=== PATIENT | male | born 1955 | race Caucasian/White ===

== ENCOUNTER 2021-09-12 18:36 | Emergency (ER) | payer MEDICARE, BC ==
[2021-09-12] MEDS ORDERED: Ciprofloxacin 500 MG Tab ONE (20:00)
--- NOTE | 2021-09-12 20:15 | EDM.PDOC ---
ED HPI GENERAL MEDICAL PROBLEM - General Chief Complaint: Genitourinary Problem Stated Complaint: DIFFICULTY URINATING Time Seen by Provider: 09/12/21 18:45 - History of Present Illness INITIAL COMMENTS - FREE TEXT/NARRATIVE: Pt is here with C/O being unable to urinate for james 24 hours. He is only voiding very small, frequent amounts. No burning or blood in the urine. No Hx of renal stones. He has pressure in the low back and Abd over the bladder area. He has not been sick recently. Flank Pain Score (Numeric/FACES): 7 - Related Data Allergies Allergy/AdvReac Type Severity Reaction Status Date / Time No Known Allergies Allergy Verified 09/12/21 18:47 Home Meds: Home Meds NK [No Known Home Meds] 09/12/21 [History] Past Medical History Genitourinary History: Reports: Prostate Disorder, Renal Calculus Oncologic (Cancer) History: Reports: Malignant Melanoma - Past Surgical History HEENT Surgical History: Reports: Detached Retina GI Surgical History: Reports: Hernia, Inguinal Male Surgical History: Reports: Kidney Stone Extraction Musculoskeletal Surgical History: Reports: Knee Replacement Social & Family History - Tobacco Use Tobacco Use Status *Q: Never Tobacco User Second Hand Smoke Exposure: No - Caffeine Use Caffeine Use: Reports: None - Recreational Drug Use Recreational Drug Use: No ED ROS GENERAL - Review of Systems Review Of Systems: Comprehensive ROS is negative, except as noted in HPI. : Reports: Urinary Retention ED EXAM, RENAL/ - Physical Exam Exam: See Below (Male) Exam: Other (He does have some distention over the bladder, and tenderness with light palpation. Bladder scan shows 663 ml of urine.) Course - Vital Signs Last Recorded V/S: Last Vital Signs Temp 98 F 09/12/21 18:40 Pulse 79 09/12/21 19:05 Resp 18 09/12/21 19:05 BP 152/87 H 09/12/21 19:05 Pulse Ox 99 09/12/21 19:05 - Orders/Labs/Meds Labs: Laboratory Tests 09/12/21 09/12/21 09/12/21 Range/Units 18:54 19:20 19:20 WBC 10.6 (4.0-11.0) K/uL RBC 5.39 (4.50-6.50) M/uL Hgb 16.6 (13.0-18.0) g/dL Hct 46.5 (40.0-54.0) % MCV 86 (76-96) fL MCH 30.8 (27.0-32.0) pg MCHC 35.7 H (31.0-35.0) g/dL RDW 13.7 (11.0-16.0) % Plt Count 136 L (150-400) K/uL MPV 10.8 H (6.0-10.0) fL Neut % (Auto) 88.0 H (45.0-70.0) % Lymph % (Auto) 6.0 L (20.0-40.0) % Owen % (Auto) 5.5 (3.0-10.0) % Eos % (Auto) 0.4 L (1.0-5.0) % Baso % (Auto) 0.1 (0.0-0.5) % Neut # (Auto) 9.36 H (2.00-7.50) K/uL Lymph # (Auto) 0.64 L (1.50-4.00) K/uL Owen # (Auto) 0.58 (0.20-0.80) K/uL Eos # (Auto) 0.04 (0.04-0.40) K/uL Baso # (Auto) 0.01 L (0.02-0.10) K/uL Sodium 144 (136-145) mmol/L Potassium 3.8 (3.5-5.1) mmol/L Chloride 106 (98-107) mmol/L Carbon Dioxide 26.2 (21.0-32.0) mmol/L Anion Gap 15.6 H (5.0-15.0) mmol/L BUN 19 (8-26) mg/dL Creatinine 1.06 (0.70-1.30) mg/dL Est Cr Clr Drug Dosing 79.16 mL/min Estimated GFR (MDRD) > 60 (>60) MLS/MIN BUN/Creatinine Ratio 17.9 (6-25) Glucose 122 H (74-100) mg/dL Calcium 8.8 (8.5-10.1) mg/dL Total Bilirubin 1.5 H (0.0-1.0) mg/dL AST 22 (15-37) U/L ALT 26 (12-78) U/L Alkaline Phosphatase 88 (46-116) U/L Total Protein 6.6 (6.4-8.2) g/dL Albumin 3.6 (3.4-5.0) g/dL Globulin 3.0 (2.2-4.2) g/dL Albumin/Globulin Ratio 1.2 (0.8-2.0) PSA Screen (0.00-4.00) ng/mL Urine Color Yellow Urine Appearance Clear (CLEAR) Urine pH 5.5 (5.0-8.0) Ur Specific [place] >= 1.030 (1.003-1.030) Urine Protein Negative (NEGATIVE) mg/dL Urine Glucose (UA) Negative (NEGATIVE) mg/dL Urine Ketones Negative (NEGATIVE) mg/dL Urine Occult Blood Small H (NEGATIVE) Urine Nitrite Negative (NEGATIVE) Urine Bilirubin Negative (NEGATIVE) Urine Urobilinogen 0.2 (0.2-1.0) E.U./dL Ur Leukocyte Esterase Negative (NEGATIVE) Urine RBC 5-10 H /HPF Urine WBC 0-5 H /HPF 09/12/21 Range/Units 19:20 WBC (4.0-11.0) K/uL RBC (4.50-6.50) M/uL Hgb (13.0-18.0) g/dL Hct (40.0-54.0) % MCV (76-96) fL MCH (27.0-32.0) pg MCHC (31.0-35.0) g/dL RDW (11.0-16.0) % Plt Count (150-400) K/uL MPV (6.0-10.0) fL Neut % (Auto) (45.0-70.0) % Lymph % (Auto) (20.0-40.0) % Owen % (Auto) (3.0-10.0) % Eos % (Auto) (1.0-5.0) % Baso % (Auto) (0.0-0.5) % Neut # (Auto) (2.00-7.50) K/uL Lymph # (Auto) (1.50-4.00) K/uL Owen # (Auto) (0.20-0.80) K/uL Eos # (Auto) (0.04-0.40) K/uL Baso # (Auto) (0.02-0.10) K/uL Sodium (136-145) mmol/L Potassium (3.5-5.1) mmol/L Chloride (98-107) mmol/L Carbon Dioxide (21.0-32.0) mmol/L Anion Gap (5.0-15.0) mmol/L BUN (8-26) mg/dL Creatinine (0.70-1.30) mg/dL Est Cr Clr Drug Dosing mL/min Estimated GFR (MDRD) (>60) MLS/MIN BUN/Creatinine Ratio (6-25) Glucose (74-100) mg/dL Calcium (8.5-10.1) mg/dL Total Bilirubin (0.0-1.0) mg/dL AST (15-37) U/L ALT (12-78) U/L Alkaline Phosphatase (46-116) U/L Total Protein (6.4-8.2) g/dL Albumin (3.4-5.0) g/dL Globulin (2.2-4.2) g/dL Albumin/Globulin Ratio (0.8-2.0) PSA Screen 15.07 H (0.00-4.00) ng/mL Urine Color Urine Appearance (CLEAR) Urine pH (5.0-8.0) Ur Specific [place] (1.003-1.030) Urine Protein (NEGATIVE) mg/dL Urine Glucose (UA) (NEGATIVE) mg/dL Urine Ketones (NEGATIVE) mg/dL Urine Occult Blood (NEGATIVE) Urine Nitrite (NEGATIVE) Urine Bilirubin (NEGATIVE) Urine Urobilinogen (0.2-1.0) E.U./dL Ur Leukocyte Esterase (NEGATIVE) Urine RBC /HPF Urine WBC /HPF - Re-Assessments/Exams Free Text/Narrative Re-Assessment/Exam: 09/12/21 20:11 Catheter was placed per nursing without difficulty with return of almost 700 ml of clear urine. His symptoms of pressure and back pain resolved as well. V.S. also improved. Labs show a left shift, and the UA shows mild changes. PSA is up at 15. Pt will be started on Cipro for 3 days. I discussed the option of leaving the catheter in versu removing it. He wants the catheter out tonite, so it was removed before leaving. He is to follow up with his PCP or Urology when he gets home. He is here for fishing, but plans to go home tomorrow. He has no further questions. Departure - Departure Time of Disposition: 20:10 Disposition: Home, Self-Care 01 Clinical Impression: Retention of urine - Discharge Information *PRESCRIPTION DRUG MONITORING PROGRAM REVIEWED*: No *COPY OF PRESCRIPTION DRUG MONITORING REPORT IN PATIENT ZABRINA: No Instructions: Ciprofloxacin tablets Referrals: PCP,None [Primary Care Provider] - Forms: ED Department Discharge Additional Instructions: Take antibiotics as prescribed. Cipro 500mg twice daily. Start with one tonight Follow up with professor of psychology or Urology If symptoms return come back to ER if needed Sepsis Event Note (ED) - Evaluation Sepsis Screening Result: No Definite Risk - Focused Exam Vital Signs: Vital Signs Temp Pulse Resp BP Pulse Ox 09/12/21 19:05 79 18 152/87 H 99 09/12/21 18:40 98 F 98 18 180/101 H 95
== END 2021-09-12 20:04 | disposition home or self-care (01) ==
LOC: LB.ED 18:36
DX: R33.9 Retention of urine, unspecified (principal)
CPT/HCPCS: 36415; 51702; 80053; 81001; 85025; 99284-25; A9270-GY; G0103

== ENCOUNTER 2021-09-13 08:36 | Emergency (ER) | payer MEDICARE, BC ==
--- NOTE | 2021-09-13 09:16 | EDM.PDOC ---
ED HPI GENERAL MEDICAL PROBLEM - General Chief Complaint: Genitourinary Problem Stated Complaint: TROUBLE WITH URINATION Time Seen by Provider: 09/13/21 08:55 - History of Present Illness INITIAL COMMENTS - FREE TEXT/NARRATIVE: Pt is here with C/O of urinary retention. He was here last evening for the same - He was cathed with james 675 ml of urine. His symptoms resolved - labs showed a left shift with subtle changes on the UA. PSA was 15. He did not want to keep the catheter so it was removed. He tells me today he should have kept it. He is having the same issue of not being able to void. The low back pain is returning and pressure over the bladder. - Related Data Allergies Allergy/AdvReac Type Severity Reaction Status Date / Time No Known Allergies Allergy Verified 09/13/21 09:02 Home Meds: Home Meds NK [No Known Home Meds] 09/12/21 [History] Past Medical History Genitourinary History: Reports: Prostate Disorder, Renal Calculus Oncologic (Cancer) History: Reports: Malignant Melanoma - Past Surgical History HEENT Surgical History: Reports: Detached Retina GI Surgical History: Reports: Hernia, Inguinal Male Surgical History: Reports: Kidney Stone Extraction Musculoskeletal Surgical History: Reports: Knee Replacement Social & Family History - Caffeine Use Caffeine Use: Reports: None ED ROS GENERAL - Review of Systems Review Of Systems: Comprehensive ROS is negative, except as noted in HPI. : Reports: Urinary Retention ED EXAM, RENAL/ - Physical Exam Exam: See Below Text/Narrative:: Once again a Catheter was placed with return of several hundred ml of clear urine. He will be fitted with a leg bag today. He plans on going home to the [facility] and following up with Urology or go to the ER today. He has no further questions, and his symptoms of discomfort have once again resolved. Course - Re-Assessments/Exams Free Text/Narrative Re-Assessment/Exam: 09/13/21 09:16 He will keep the leg bag until he can follow up at home. His symptoms of discomfort have once again resolved with cathing. Departure - Departure Time of Disposition: 09:10 Disposition: Home, Self-Care 01 Condition: Good Clinical Impression: Urinary retention - Discharge Information *PRESCRIPTION DRUG MONITORING PROGRAM REVIEWED*: No *COPY OF PRESCRIPTION DRUG MONITORING REPORT IN PATIENT ZABRINA: No Referrals: PCP,None [Primary Care Provider] -
== END 2021-09-13 09:50 | disposition home or self-care (01) ==
LOC: LB.ED 08:36
DX: R33.9 Retention of urine, unspecified (principal)
CPT/HCPCS: 51702; 99283-25